=== PATIENT | male | born 1945 | race Caucasian/White ===

== ENCOUNTER 2021-12-05 18:36 | Inpatient (IN) ==
[2021-12-05 19:38] LABS: Basophils % 0.5 %; Eosinophils # 0.1 K/mcL (0.0-0.6); Eosinophils % 0.7 %; Hematocrit 37.9 % (37.5-50.1); Hemoglobin 12.1 g/dL (12.9-16.9); Immature Granulocytes % 0.4 % (0-4); Lymphocytes # 1.3 K/mcL (0.6-4.6); Lymphocytes % 16.3 %; Mean Corpuscular HGB Conc 31.9 g/dL (31.6-35.5); Mean Corpuscular Hemoglobin 30.7 pg (28.0-33.3); Mean Corpuscular Volume 96.2 fL (83.0-100.0); Mean Platelet Volume 10.7 fL (9.4-12.4); Monocytes % 12.4 %; Neutrophils # 5.7 K/mcL (1.6-8.9); Platelet Count 152 K/mcL (140-400); Red Blood Count 3.94 M/mcL (4.19-5.50); Red Cell Distribution Width 14.5 % (11.5-14.5); Segmented Neutrophils % 69.7 %; White Blood Count 8.2 K/mcL (4.3-11.1)
[2021-12-05 19:59] LABS: Calcium 9.4 mg/dL (8.6-10.3); Potassium 3.8 mEq/L (3.5-5.1)
[2021-12-05 20:11] LABS: Troponin I 0.06 ng/mL (< 0.04)
[2021-12-05 20:34] LABS: Bacteria,Urine Few per hpf (None-Few); Bilirubin,Urine Negative (Negative); Blood,Urine Negative (Negative); Clarity,Urine Clear (Clear); Color,Urine Yellow (Yellow); Glucose,Urine (UA) Normal (Normal); Ketones,Urine Negative (Negative); Leukocyte Esterase,Urine Negative (Negative); Mucus,Urine Few per lpf (None-Few); Nitrite,Urine Negative (Negative); Protein,Urine 30 mg/dL (Neg-Trace); RBC,Urine 0-3 per hpf (0-3); Specific Gravity,Urine 1.023 (1.010-1.025); Urobilinogen,Urine Normal (Normal); WBC,Urine 0-3 per hpf (0-3)
[2021-12-05] MEDS ORDERED: Haloperidol Lactate 5 MG/ML VIAL IVP ONE (20:58)
[2021-12-05] MEDS ORDERED: Ipratropium/Albuterol Neb 3 ML IH ONE (23:19)
[2021-12-05] MEDS ORDERED: Aspirin 325 MG TABLET PO ONE (23:24)
[2021-12-05] MEDS ORDERED: Ondansetron 4 MG/2 ML VIAL IVP PRN (23:44)
[2021-12-05] MEDS ORDERED: Naloxone 0.4 MG/ML INJ IVP PRN (23:44)
[2021-12-05] MEDS ORDERED: Melatonin 3 MG TABLET PO PRN (23:44)
[2021-12-05] MEDS ORDERED: Ringers Solution, Lactated 1,000 ML IVC SCH (23:45)
[2021-12-06] MEDS ORDERED: Furosemide 40 MG/4 ML VIAL IVP ONE (00:01)
[2021-12-06] MEDS ORDERED: Perflutren Lipid Microsphere 1.3 ML in 0.9 % Sodium Chloride 8.7 ML IVP PRN (00:35)
[2021-12-06 00:41] LABS: Thyroid Stimulating Hormone 4.441 mcIU/mL (0.340-5.600)
[2021-12-06 00:43] LABS: ABG Base Excess -3 mEq/L (-2 to 3); ABG HCO3 20 mEq/L (21-27); ABG Oxygen Saturation 94 % (95-98); ABG PCO2 32 mmHg (35-45); ABG PH 7.41 pH Units (7.32-7.45); ABG PO2 71 mmHg (85-104); ABG TCO2 21 mEq/L (20-26)
[2021-12-06 00:43] LABS: Albumin 4.1 g/dL (3.5-5.7); Albumin/Globulin Ratio 1.3 (1.1-2.2); Bilirubin,Direct 0.5 mg/dL (0.0-0.2); Bilirubin,Indirect 1.7 mg/dL (0.0-1.0); Bilirubin,Total 2.2 mg/dL (0.3-1.0); Globulin 3.1 g/dL (2.4-3.5); Total Protein 7.2 g/dL (6.4-8.9)
[2021-12-06] MEDS ORDERED: Azithromycin 500 MG in 0.9 % Sodium Chloride 250 ML IVPB ONE (01:29)
[2021-12-06] MEDS ORDERED: cefTRIAXone 2,000 MG in 0.9 % Sodium Chloride 20 ML IVP ONE (01:29)
[2021-12-06] MEDS ORDERED: *HR* Dextrose 50 % in Water (Syg) 50 ML SYRINGE IVP PRN (01:32)
[2021-12-06] MEDS ORDERED: D5% in Water 1,000 ML IVC PRN (01:32)
[2021-12-06] MEDS ORDERED: Dextrose Gel 15 GM/37.5 ML TUBE PO PRN ×2 (01:32)
[2021-12-06 02:27] LABS: Basophils % 0.3 %; Eosinophils # 0.1 K/mcL (0.0-0.6); Eosinophils % 0.5 %; Hematocrit 38.6 % (37.5-50.1); Hemoglobin 12.4 g/dL (12.9-16.9); Immature Granulocytes % 0.6 % (0-4); Lymphocytes # 1.4 K/mcL (0.6-4.6); Lymphocytes % 13.8 %; Mean Corpuscular HGB Conc 32.1 g/dL (31.6-35.5); Mean Corpuscular Hemoglobin 31.3 pg (28.0-33.3); Mean Corpuscular Volume 97.5 fL (83.0-100.0); Mean Platelet Volume 10.8 fL (9.4-12.4); Monocytes # 1.2 K/mcL (0.0-1.3); Monocytes % 11.4 %; Neutrophils # 7.5 K/mcL (1.6-8.9); Platelet Count 154 K/mcL (140-400); Red Blood Count 3.96 M/mcL (4.19-5.50); Red Cell Distribution Width 14.6 % (11.5-14.5); Segmented Neutrophils % 73.4 %; White Blood Count 10.2 K/mcL (4.3-11.1)
[2021-12-06 02:32] LABS: INR 1.3; Prothrombin Time 14.1 Seconds (9.4-12.1)
[2021-12-06 02:42] LABS: Calcium 9.4 mg/dL (8.6-10.3); Magnesium 2.2 mg/dL (1.6-2.6); Potassium 3.9 mEq/L (3.5-5.1)
[2021-12-06 02:46] LABS: Troponin I 0.06 ng/mL (< 0.04)
[2021-12-06 03:10] LABS: Amphetamine Screen,Urine Negative ng/mL (Cutoff=1000); Barbiturate Screen,Urine Negative ng/mL (Cutoff=200); Benzodiazepines Screen,Urine Negative ng/mL (Cutoff=200); Cannabinoid Screen,Urine Negative ng/mL (Cutoff = 50); Cocaine Screen,Urine Negative ng/mL (Cutoff= 300); Opiate Screen,Urine Negative ng/mL (Cutoff=300); Phencyclidine Screen,Urine Negative ng/mL (Cutoff=25)
[2021-12-06 03:16] LABS: Procalcitonin 0.1 ng/mL (0.00-0.15)
[2021-12-06] MEDS ORDERED: *HR* LORazepam 2 MG/ML VIAL IVP ONE ×2 (03:54→07:53)
[2021-12-06] MEDS: Ipratropium/Albuterol Neb 3 ML IH SCH ×5 (04:09→20:32)
[2021-12-06] MEDS ORDERED: Cyanocobalamin (B-12) 1,000 MCG/ML VIAL SQ ONE (04:24)
[2021-12-06] MEDS: *HR* Heparin 5,000 UNIT/ML VIAL SQ SCH ×3 (06:46→20:19)
[2021-12-06] MEDS: Insulin LISPRO 300 UNITS/3 ML VIAL SUBQ SCH ×3 (07:04→18:44)
[2021-12-06] MEDS: Albumin 25% 25gram/100mL 25 GM/100 ML IV.SOLN IVPB SCH ×3 (08:37→23:22)
[2021-12-06 08:57] LABS: Creatinine,Urine 35 mg/dL; Sodium, Urine 105.1 mEq/L
[2021-12-06 10:44] LABS: Adenovirus Not Detected (Not Detect); Bordetella Pertussis Not Detected (Not Detect); Chlamydophila pneumoniae Not Detected (Not Detect); Coronavirus 229E Not Detected (Not Detect); Coronavirus HKU1 Not Detected (Not Detect); Coronavirus NL63 Not Detected (Not Detect); Coronavirus OC43 Not Detected (Not Detect); Human Metapneumovirus Not Detected (Not Detect); Human Rhinovirus/Enterovirus Not Detected (Not Detect); Influenza A Subtype 2009 H1 Not Detected (Not Detect); Influenza B Not Detected (Not Detect); Mycoplasma pneumoniae Not Detected (Not Detect); Parainfluenza Virus 1 Not Detected (Not Detect); Parainfluenza Virus 2 Not Detected (Not Detect); Parainfluenza Virus 3 Not Detected (Not Detect); Parainfluenza Virus 4 Not Detected (Not Detect); Respiratory Syncytial Virus Not Detected (Not Detect); SARS-CoV-2 Not Detected (Not Detect)
[2021-12-06 11:01] LABS: ABG Base Excess -3 mEq/L (-2 to 3); ABG HCO3 22 mEq/L (21-27); ABG Oxygen Saturation 96 % (95-98); ABG PCO2 37 mmHg (35-45); ABG PH 7.38 pH Units (7.32-7.45); ABG PO2 81 mmHg (85-104); ABG TCO2 23 mEq/L (20-26)
[2021-12-06] MEDS: Furosemide 40 MG/4 ML VIAL IVP SCH ×2 (12:10→18:55)
[2021-12-07] MEDS: Insulin LISPRO 300 UNITS/3 ML VIAL SUBQ SCH ×4 (00:15→17:57)
[2021-12-07] MEDS: Ipratropium/Albuterol Neb 3 ML IH SCH ×7 (01:18→23:31)
[2021-12-07 02:28] LABS: Basophils % 0.4 %; Hematocrit 39.1 % (37.5-50.1); Hemoglobin 12.3 g/dL (12.9-16.9); Immature Granulocytes % 0.6 % (0-4); Lymphocytes # 0.5 K/mcL (0.6-4.6); Lymphocytes % 4.8 %; Mean Corpuscular HGB Conc 31.5 g/dL (31.6-35.5); Mean Corpuscular Hemoglobin 30.5 pg (28.0-33.3); Mean Platelet Volume 10.5 fL (9.4-12.4); Monocytes # 1.1 K/mcL (0.0-1.3); Monocytes % 9.7 %; Neutrophils # 9.4 K/mcL (1.6-8.9); Platelet Count 156 K/mcL (140-400); Red Blood Count 4.03 M/mcL (4.19-5.50); Red Cell Distribution Width 14.7 % (11.5-14.5); Segmented Neutrophils % 84.5 %; White Blood Count 11.2 K/mcL (4.3-11.1)
[2021-12-07 02:51] LABS: Calcium 9.5 mg/dL (8.6-10.3); Magnesium 2.3 mg/dL (1.6-2.6); Phosphorous 4.5 mg/dL (2.7-4.5); Potassium 3.5 mEq/L (3.5-5.1)
[2021-12-07] MEDS: Albumin 25% 25gram/100mL 25 GM/100 ML IV.SOLN IVPB SCH ×2 (07:57→16:26)
[2021-12-07] MEDS ORDERED: Morphine Sulfate 2 MG/ML SYRINGE IVP ONE (08:10)
[2021-12-07] MEDS: Furosemide 40 MG/4 ML VIAL IVP SCH ×2 (08:33→18:00)
[2021-12-07] MEDS: Aspirin 81 MG TAB.CHEW PO SCH (08:34)
[2021-12-07] MEDS: Finasteride 5 MG TABLET PO SCH (10:19)
[2021-12-07] MEDS: allopurinoL 100 MG TABLET PO SCH (10:19)
[2021-12-07] MEDS: Cholecalciferol (D-3) 1,000 UNIT (25MCG) TABLET PO SCH (10:19)
[2021-12-07] MEDS: Spironolactone 12.5 MG TABLET PO SCH (10:19)
[2021-12-07] MEDS: Budesonide/Formoterol 160/4.5 1 PUFF INH IH SCH ×2 (11:20→20:07)
[2021-12-07] MEDS: *HR* OxyCODONE/APAP 5/325 TABLET PO PRN (18:32)
[2021-12-07] MEDS: Melatonin 3 MG TABLET PO SCH (22:38)
[2021-12-08] MEDS: Insulin LISPRO 300 UNITS/3 ML VIAL SUBQ SCH ×4 (01:11→17:44)
[2021-12-08] MEDS: *HR* OxyCODONE/APAP 5/325 TABLET PO PRN ×2 (01:16→20:00)
[2021-12-08] MEDS: Albumin 25% 25gram/100mL 25 GM/100 ML IV.SOLN IVPB SCH ×3 (01:23→16:02)
[2021-12-08] MEDS ORDERED: *HR* HYDROmorphone (PF) 1 MG/ML SYRINGE IVP ONE (03:09)
[2021-12-08] MEDS: Ipratropium/Albuterol Neb 3 ML IH SCH ×5 (03:47→20:30)
[2021-12-08 05:34] LABS: Basophils % 0.2 %; Eosinophils % 0.1 %; Hematocrit 33.1 % (37.5-50.1); Hemoglobin 10.6 g/dL (12.9-16.9); Immature Granulocytes % 0.9 % (0-4); Lymphocytes # 0.7 K/mcL (0.6-4.6); Lymphocytes % 6.4 %; Mean Corpuscular Hemoglobin 31.2 pg (28.0-33.3); Mean Corpuscular Volume 97.4 fL (83.0-100.0); Mean Platelet Volume 10.3 fL (9.4-12.4); Monocytes % 9.5 %; Neutrophils # 8.6 K/mcL (1.6-8.9); Platelet Count 140 K/mcL (140-400); Red Cell Distribution Width 15.1 % (11.5-14.5); Segmented Neutrophils % 82.9 %; White Blood Count 10.3 K/mcL (4.3-11.1)
[2021-12-08 05:57] LABS: Albumin 4.5 g/dL (3.5-5.7); Albumin/Globulin Ratio 1.8 (1.1-2.2); Bilirubin,Direct 0.5 mg/dL (0.0-0.2); Bilirubin,Indirect 1.7 mg/dL (0.0-1.0); Bilirubin,Total 2.2 mg/dL (0.3-1.0); Calcium 9.6 mg/dL (8.6-10.3); Globulin 2.5 g/dL (2.4-3.5); Potassium 3.4 mEq/L (3.5-5.1)
[2021-12-08] MEDS: Budesonide/Formoterol 160/4.5 1 PUFF INH IH SCH ×2 (07:30→20:30)
[2021-12-08] MEDS: allopurinoL 100 MG TABLET PO SCH (08:57)
[2021-12-08] MEDS: Aspirin 81 MG TAB.CHEW PO SCH (08:57)
[2021-12-08] MEDS: Cholecalciferol (D-3) 1,000 UNIT (25MCG) TABLET PO SCH (09:01)
[2021-12-08] MEDS: Spironolactone 12.5 MG TABLET PO SCH (09:01)
[2021-12-08] MEDS: Finasteride 5 MG TABLET PO SCH (09:02)
[2021-12-08] MEDS: Furosemide 40 MG/4 ML VIAL IVP SCH ×2 (09:02→16:01)
[2021-12-08] MEDS: Melatonin 3 MG TABLET PO SCH (20:01)
[2021-12-09] MEDS: Ipratropium/Albuterol Neb 3 ML IH SCH ×6 (00:10→20:28)
[2021-12-09] MEDS: Insulin LISPRO 300 UNITS/3 ML VIAL SUBQ SCH ×4 (00:52→18:28)
[2021-12-09] MEDS: Albumin 25% 25gram/100mL 25 GM/100 ML IV.SOLN IVPB SCH ×3 (00:55→16:42)
[2021-12-09] MEDS: Budesonide/Formoterol 160/4.5 1 PUFF INH IH SCH ×2 (07:39→20:29)
[2021-12-09] MEDS: Cholecalciferol (D-3) 1,000 UNIT (25MCG) TABLET PO SCH (08:27)
[2021-12-09] MEDS: Finasteride 5 MG TABLET PO SCH (08:27)
[2021-12-09] MEDS: Aspirin 81 MG TAB.CHEW PO SCH (08:27)
[2021-12-09] MEDS: allopurinoL 100 MG TABLET PO SCH (08:27)
[2021-12-09] MEDS: Spironolactone 12.5 MG TABLET PO SCH (08:30)
[2021-12-09 09:50] LABS: Basophils % 0.3 %; Eosinophils # 0.2 K/mcL (0.0-0.6); Hematocrit 36.8 % (37.5-50.1); Hemoglobin 11.4 g/dL (12.9-16.9); Immature Granulocytes % 0.6 % (0-4); Lymphocytes # 1.2 K/mcL (0.6-4.6); Mean Corpuscular Hemoglobin 31.1 pg (28.0-33.3); Mean Corpuscular Volume 100.3 fL (83.0-100.0); Monocytes # 0.8 K/mcL (0.0-1.3); Neutrophils # 5.7 K/mcL (1.6-8.9); Platelet Count 118 K/mcL (140-400); Red Blood Count 3.67 M/mcL (4.19-5.50); Red Cell Distribution Width 15.4 % (11.5-14.5); Segmented Neutrophils % 72.1 %; White Blood Count 7.9 K/mcL (4.3-11.1)
[2021-12-09] MEDS: Furosemide 40 MG/4 ML VIAL IVP SCH ×2 (10:15→18:28)
[2021-12-09 10:39] LABS: Calcium 9.4 mg/dL (8.6-10.3); Potassium 3.4 mEq/L (3.5-5.1)
[2021-12-09] MEDS: Melatonin 3 MG TABLET PO SCH (20:06)
[2021-12-09] MEDS: Benzonatate 100 MG CAPSULE PO PRN (21:13)
[2021-12-10] MEDS: Ipratropium/Albuterol Neb 3 ML IH SCH ×7 (00:03→23:15)
[2021-12-10] MEDS: Albumin 25% 25gram/100mL 25 GM/100 ML IV.SOLN IVPB SCH ×3 (00:42→17:31)
[2021-12-10] MEDS: Insulin LISPRO 300 UNITS/3 ML VIAL SUBQ SCH ×4 (00:58→18:22)
[2021-12-10] MEDS: Budesonide/Formoterol 160/4.5 1 PUFF INH IH SCH ×2 (07:49→20:20)
[2021-12-10] MEDS: Aspirin 81 MG TAB.CHEW PO SCH (09:04)
[2021-12-10] MEDS: allopurinoL 100 MG TABLET PO SCH (09:04)
[2021-12-10] MEDS: Finasteride 5 MG TABLET PO SCH (09:04)
[2021-12-10] MEDS: Cholecalciferol (D-3) 1,000 UNIT (25MCG) TABLET PO SCH (09:04)
[2021-12-10] MEDS: Furosemide 40 MG/4 ML VIAL IVP SCH ×2 (09:05→17:30)
[2021-12-10] MEDS: Spironolactone 12.5 MG TABLET PO SCH (09:14)
[2021-12-10] MEDS: Melatonin 3 MG TABLET PO SCH (20:43)
[2021-12-11] MEDS: Albumin 25% 25gram/100mL 25 GM/100 ML IV.SOLN IVPB SCH ×3 (00:05→16:36)
[2021-12-11] MEDS: Insulin LISPRO 300 UNITS/3 ML VIAL SUBQ SCH ×4 (01:39→16:37)
[2021-12-11] MEDS: Ipratropium/Albuterol Neb 3 ML IH SCH ×5 (04:06→20:18)
[2021-12-11] MEDS: Budesonide/Formoterol 160/4.5 1 PUFF INH IH SCH ×2 (07:38→20:17)
[2021-12-11] MEDS: Spironolactone 12.5 MG TABLET PO SCH (09:02)
[2021-12-11] MEDS: Finasteride 5 MG TABLET PO SCH (09:03)
[2021-12-11] MEDS: Cholecalciferol (D-3) 1,000 UNIT (25MCG) TABLET PO SCH (09:03)
[2021-12-11] MEDS: Aspirin 81 MG TAB.CHEW PO SCH (09:03)
[2021-12-11] MEDS: allopurinoL 100 MG TABLET PO SCH (09:03)
[2021-12-11] MEDS: Furosemide 40 MG/4 ML VIAL IVP SCH ×2 (09:10→17:04)
[2021-12-11] MEDS: *HR* OxyCODONE/APAP 5/325 TABLET PO PRN (11:26)
[2021-12-11] MEDS: Melatonin 3 MG TABLET PO SCH (19:57)
[2021-12-11] MEDS: Benzonatate 100 MG CAPSULE PO PRN (20:09)
[2021-12-12] MEDS: Ipratropium/Albuterol Neb 3 ML IH SCH ×7 (00:05→23:05)
[2021-12-12] MEDS: Albumin 25% 25gram/100mL 25 GM/100 ML IV.SOLN IVPB SCH ×3 (00:51→16:02)
[2021-12-12] MEDS: Insulin LISPRO 300 UNITS/3 ML VIAL SUBQ SCH ×5 (01:00→17:28)
[2021-12-12 05:41] LABS: Basophils % 0.5 %; Eosinophils # 0.2 K/mcL (0.0-0.6); Eosinophils % 3.3 %; Hematocrit 31.4 % (37.5-50.1); Immature Granulocytes % 0.9 % (0-4); Lymphocytes % 15.8 %; Mean Corpuscular HGB Conc 31.8 g/dL (31.6-35.5); Mean Corpuscular Hemoglobin 31.3 pg (28.0-33.3); Mean Corpuscular Volume 98.1 fL (83.0-100.0); Mean Platelet Volume 10.6 fL (9.4-12.4); Monocytes # 0.7 K/mcL (0.0-1.3); Monocytes % 11.3 %; Neutrophils # 4.4 K/mcL (1.6-8.9); Platelet Count 139 K/mcL (140-400); Red Cell Distribution Width 14.9 % (11.5-14.5); Segmented Neutrophils % 68.2 %; White Blood Count 6.4 K/mcL (4.3-11.1)
[2021-12-12 06:56] LABS: Calcium 9.7 mg/dL (8.6-10.3); Potassium 3.1 mEq/L (3.5-5.1)
[2021-12-12] MEDS: Budesonide/Formoterol 160/4.5 1 PUFF INH IH SCH ×2 (07:57→20:26)
[2021-12-12] MEDS: Finasteride 5 MG TABLET PO SCH (08:59)
[2021-12-12] MEDS: Aspirin 81 MG TAB.CHEW PO SCH (08:59)
[2021-12-12] MEDS: allopurinoL 100 MG TABLET PO SCH (08:59)
[2021-12-12] MEDS: Gabapentin 100 MG CAPSULE PO SCH ×3 (08:59→19:45)
[2021-12-12] MEDS: Cholecalciferol (D-3) 1,000 UNIT (25MCG) TABLET PO SCH (08:59)
[2021-12-12] MEDS: Spironolactone 12.5 MG TABLET PO SCH (12:16)
[2021-12-12] MEDS: Furosemide 40 MG/4 ML VIAL IVP SCH ×2 (12:16→18:40)
[2021-12-12] MEDS: Melatonin 3 MG TABLET PO SCH (19:46)
[2021-12-13] MEDS: Albumin 25% 25gram/100mL 25 GM/100 ML IV.SOLN IVPB SCH ×2 (00:01→08:12)
[2021-12-13] MEDS: Ipratropium/Albuterol Neb 3 ML IH SCH ×5 (04:28→23:00)
[2021-12-13] MEDS: Budesonide/Formoterol 160/4.5 1 PUFF INH IH SCH ×2 (07:45→23:00)
[2021-12-13] MEDS: Insulin LISPRO 300 UNITS/3 ML VIAL SUBQ SCH ×3 (08:01→17:45)
[2021-12-13 08:39] VITALS: O2SAT 96
[2021-12-13] MEDS: Furosemide 40 MG/4 ML VIAL IVP SCH ×2 (10:46→17:44)
[2021-12-13] MEDS: Aspirin 81 MG TAB.CHEW PO SCH (10:51)
[2021-12-13] MEDS: Spironolactone 12.5 MG TABLET PO SCH (10:51)
[2021-12-13] MEDS: Cholecalciferol (D-3) 1,000 UNIT (25MCG) TABLET PO SCH (10:54)
[2021-12-13] MEDS: Gabapentin 100 MG CAPSULE PO SCH ×2 (10:54→17:44)
[2021-12-13] MEDS: Finasteride 5 MG TABLET PO SCH (10:54)
[2021-12-13] MEDS: allopurinoL 100 MG TABLET PO SCH (10:58)
[2021-12-13 14:02] LABS: Potassium 3.4 mEq/L (3.5-5.1)
[2021-12-13 16:57] VITALS: BP 121/59; PULSE 62; TEMP 96.9
== END 2021-12-13 20:00 | disposition home or self-care (01) | DRG 280 ==
LOC: 3BNU 18:36 → EMEROOARM 18:36 → SUATTDRO 23:37 → 3NENU 12-06 00:08 → SUATTDRO 12-07 08:14
PROVIDERS: ADMIT Internal Medicine; ATTEND Hospitalist